=== PATIENT | male | born 1955 | race Caucasian/White ===

== ENCOUNTER 2018-09-06 11:25 | Inpatient (IN) | payer OTHER ==
[~2018-09-06] VITALS: Ht 188 cm; Wt 96.5 kg
[2018-09-06 11:59] LABS: BASOPHILS # (AUTO) 0.06 x10^3/uL (0-0.1); BASOPHILS % (AUTO) 1 % (0-1); EOSINOPHILS # (AUTO) 0.19 x10^3/uL (0-0.4); EOSINOPHILS % (AUTO) 3 % (1-7); LYMPHOCYTES # (AUTO) 1.59 x10^3/uL (1-3.4); LYMPHOCYTES % (AUTO) 21 % (22-44); MD NO; MEAN CORPUSCULAR HEMOGLOBIN 29.7 pg (27.5-34.5); MEAN CORPUSCULAR HGB CONC 33.8 g/dL (33.2-36.2); MEAN CORPUSCULAR VOLUME 87.8 fL (81-97); MEAN PLATELET VOLUME 8.4 fL (7.4-10.4); MONOCYTES # (AUTO) 0.45 x10^3/uL (0.2-0.8); MONOCYTES % (AUTO) 6 % (2-9); NEUTROPHILS # (AUTO) 5.43 x10^3/uL (1.8-6.8); NEUTROPHILS % (AUTO) 70 % (42-75); PLATELET COUNT 262 x10^3/uL (130-400); RED BLOOD COUNT 5.51 x10^6/uL (4.38-5.82); RED CELL DISTRIBUTION WIDTH 12.9 % (9.4-14.8)
[2018-09-06 12:11] LABS: ALBUMIN 4.1 g/dL (3.4-5.0); ANION GAP 0 mmol/L (5-15); CHLORIDE 109 mmol/L (98-107)
[2018-09-06 12:14] LABS: ALANINE AMINOTRANSFERASE 49 U/L (12-78); ALKALINE PHOSPHATASE 94 U/L (45-117); BILIRUBIN,TOTAL 0.7 mg/dL (0.2-1.0); CREATININE 0.94 mg/dL (0.7-1.3); TOTAL PROTEIN 7.5 g/dL (6.4-8.2)
[2018-09-06] MEDS ORDERED: GADOBUTROL 10 MMOL/10 ML PFS ONE (14:06)
[2018-09-06] MEDS ORDERED: SIMV20TA3 PO (14:32)
[2018-09-06] MEDS ORDERED: AMLO10TA6 PO (14:32)
[2018-09-06] MEDS ORDERED: DOXA2TAB9 PO (14:32)
[2018-09-06] MEDS ORDERED: LISI-170 PO (14:32)
[2018-09-06] MEDS ORDERED: HYDR12.53 PO (14:32)
[2018-09-06] MEDS ORDERED: DOCUSATE 100 MG CAPSULE PO PRN (16:00)
[2018-09-06] MEDS ORDERED: ACETAMINOPHEN 325 MG TABLET PO PRN (16:00)
[2018-09-06] MEDS ORDERED: ONDANSETRON 2MG/ML, 2ML IVPush PRN (16:00)
[2018-09-06] MEDS ORDERED: GABAPENTIN 300 MG CAPSULE PO PRN (16:00)
[2018-09-06] MEDS ORDERED: GUAIFENESIN/COD200MG-20MG/10ML LIQUID PO PRN (16:00)
[2018-09-06] MEDS ORDERED: POTASSIUM CHLORIDE 20 MEQ TAB.ER.PRT PO ONE (16:00)
[2018-09-06] MEDS ORDERED: LABETALOL 5MG/ML, 20ML IV PRN (16:00)
[2018-09-06] MEDS: ATORVASTATIN 80 MG TABLET PO SCH (20:19)
[2018-09-06 20:30] VITALS: BP 150/86
[2018-09-07 01:03] VITALS: BP 136/84
[2018-09-07 05:54] LABS: BASOPHILS # (AUTO) 0.06 x10^3/uL (0-0.1); BASOPHILS % (AUTO) 1 % (0-1); EOSINOPHILS # (AUTO) 0.24 x10^3/uL (0-0.4); EOSINOPHILS % (AUTO) 3 % (1-7); LYMPHOCYTES # (AUTO) 1.45 x10^3/uL (1-3.4); LYMPHOCYTES % (AUTO) 20 % (22-44); MD NO; MEAN CORPUSCULAR HEMOGLOBIN 30.3 pg (27.5-34.5); MEAN CORPUSCULAR HGB CONC 34.8 g/dL (33.2-36.2); MEAN CORPUSCULAR VOLUME 87.1 fL (81-97); MEAN PLATELET VOLUME 8.3 fL (7.4-10.4); MONOCYTES # (AUTO) 0.43 x10^3/uL (0.2-0.8); MONOCYTES % (AUTO) 6 % (2-9); NEUTROPHILS # (AUTO) 4.98 x10^3/uL (1.8-6.8); NEUTROPHILS % (AUTO) 70 % (42-75); PLATELET COUNT 248 x10^3/uL (130-400); RED BLOOD COUNT 4.99 x10^6/uL (4.38-5.82); RED CELL DISTRIBUTION WIDTH 13.2 % (9.4-14.8)
[2018-09-07 06:07] LABS: ALBUMIN 3.7 g/dL (3.4-5.0); CHLORIDE 107 mmol/L (98-107)
[2018-09-07 06:08] LABS: HEMOGLOBIN A1C 6.1 % (4.2-6.3)
[2018-09-07 06:18] LABS: ALANINE AMINOTRANSFERASE 42 U/L (12-78); ALKALINE PHOSPHATASE 84 U/L (45-117); ANION GAP 8 mmol/L (5-15); BILIRUBIN,TOTAL 0.9 mg/dL (0.2-1.0); CALCIUM 8.4 mg/dL (8.5-10.1); CHOL/HDL RATIO 3.3; CHOLESTEROL, TOTAL 157 mg/dL (140-239); CREATININE 0.84 mg/dL (0.7-1.3); HDL CHOL % 30 % (26-37); HDL CHOLESTEROL (DIRECT) 47 mg/dL (40-60); LDL CHOLESTEROL,CALCULATED 63 mg/dL (54-169); LDL/HDL RATIO 1.3 (0.5-3.0); TOTAL PROTEIN 6.4 g/dL (6.4-8.2); TRIGLYCERIDES 236 mg/dL (50-200); VLDL CHOLESTEROL 47 mg/dL (0-25)
[2018-09-07] MEDS: POTASSIUM CHLORIDE 20 MEQ TAB.ER.PRT PO SCH ×2 (06:35→10:30)
[2018-09-07 06:42] VITALS: BP 137/83
[2018-09-07] MEDS: ASPIRIN 81 MG TABLET CHEW PO/NG SCH (08:48)
[2018-09-07 14:58] VITALS: BP 144/84
[2018-09-07 20:00] VITALS: BP 162/88
[2018-09-07] MEDS: ATORVASTATIN 80 MG TABLET PO SCH (20:45)
[2018-09-08 02:00] VITALS: BP 142/79
[2018-09-08 06:16] LABS: ANION GAP 10 mmol/L (5-15); CALCIUM 8.5 mg/dL (8.5-10.1); CHLORIDE 109 mmol/L (98-107); CREATININE 0.78 mg/dL (0.7-1.3)
[2018-09-08 06:43] VITALS: BP 148/88
[2018-09-08 06:54] LABS: BASOPHILS # (AUTO) 0.02 x10^3/uL (0-0.1); BASOPHILS % (AUTO) 0 % (0-1); EOSINOPHILS # (AUTO) 0.19 x10^3/uL (0-0.4); EOSINOPHILS % (AUTO) 2 % (1-7); LYMPHOCYTES # (AUTO) 1.51 x10^3/uL (1-3.4); LYMPHOCYTES % (AUTO) 19 % (22-44); MD NO; MEAN CORPUSCULAR VOLUME 88.4 fL (81-97); MEAN PLATELET VOLUME 9.2 fL (7.4-10.4); MONOCYTES # (AUTO) 0.42 x10^3/uL (0.2-0.8); MONOCYTES % (AUTO) 5 % (2-9); NEUTROPHILS % (AUTO) 73 % (42-75); PLATELET COUNT 243 x10^3/uL (130-400); RED BLOOD COUNT 5.08 x10^6/uL (4.38-5.82); RED CELL DISTRIBUTION WIDTH 12.7 % (9.4-14.8)
[2018-09-08] MEDS: ASPIRIN 81 MG TABLET CHEW PO/NG SCH (08:39)
[2018-09-08] MEDS: POTASSIUM CHLORIDE 20 MEQ TAB.ER.PRT PO SCH ×2 (10:37→15:06)
[2018-09-08 12:08] VITALS: BP 157/89
[2018-09-08] MEDS: LISINOPRIL 20 MG TABLET PO SCH (15:06)
[2018-09-08] MEDS ORDERED: POTASSIUM CHLORIDE 20 MEQ TAB.ER.PRT PO ONE (16:30)
[2018-09-08 19:55] VITALS: BP 153/83
[2018-09-08] MEDS: ATORVASTATIN 80 MG TABLET PO SCH (20:19)
[2018-09-08] MEDS ORDERED: OMNIPAQUE 350 MG/ML, 100ML BOTTLE ONE (23:59)
[2018-09-09 02:00] VITALS: BP 157/85
[2018-09-09 05:47] LABS: ANION GAP 11 mmol/L (5-15); CALCIUM 8.5 mg/dL (8.5-10.1); CHLORIDE 114 mmol/L (98-107); CREATININE 0.85 mg/dL (0.7-1.3)
[2018-09-09 07:57] VITALS: BP 150/87
[2018-09-09] MEDS: AMLODIPINE 10 MG TAB PO SCH (08:54)
[2018-09-09] MEDS: LISINOPRIL 20 MG TABLET PO SCH (08:54)
[2018-09-09] MEDS: ASPIRIN 81 MG TABLET CHEW PO/NG SCH (08:54)
[2018-09-09] MEDS: HYDROCHLOROTHIAZIDE 12.5 MG CAPSULE PO SCH (12:19)
[2018-09-09] MEDS: POTASSIUM CHLORIDE 20 MEQ TAB.ER.PRT PO SCH (12:19)
[2018-09-09] MEDS: DOXAZOSIN 2MG TABLET PO SCH (12:19)
[2018-09-09 12:43] VITALS: BP 168/94
[2018-09-09 18:58] VITALS: BP 137/79
[2018-09-09] MEDS: ATORVASTATIN 80 MG TABLET PO SCH (20:59)
[2018-09-10 01:27] VITALS: BP 152/91
[2018-09-10 07:42] VITALS: BP 136/77
[2018-09-10] MEDS ORDERED: ATOR-2 PO (08:40)
[2018-09-10] MEDS ORDERED: ASPI-515 PO/NG (08:40)
[2018-09-10] MEDS ORDERED: POTA20TA6 PO (08:40)
[2018-09-10] MEDS ORDERED: ENOX40SY4 SQ (08:56)
[2018-09-10] MEDS: LISINOPRIL 20 MG TABLET PO SCH (09:05)
[2018-09-10] MEDS: AMLODIPINE 10 MG TAB PO SCH (09:06)
[2018-09-10] MEDS: DOXAZOSIN 2MG TABLET PO SCH (09:06)
[2018-09-10] MEDS: HYDROCHLOROTHIAZIDE 12.5 MG CAPSULE PO SCH (09:06)
[2018-09-10] MEDS: POTASSIUM CHLORIDE 20 MEQ TAB.ER.PRT PO SCH (09:06)
[2018-09-10] MEDS: ASPIRIN 81 MG TABLET CHEW PO/NG SCH (09:06)
== END 2018-09-10 13:19 | DRG 65 ==
LOC: ED 14:49 → EDIP 15:13 → 4WST 16:09
PROVIDERS: ADMIT Hospitalist; ATTEND Hospitalist
DX: I63.9 Cerebral infarction, unspecified (principal); G81.94 Hemiplegia, unspecified affecting left nondominant side; E78.5 Hyperlipidemia, unspecified; E87.6 Hypokalemia; I10 Essential (primary) hypertension; R13.12 Dysphagia, oropharyngeal phase; R27.0 Ataxia, unspecified; R29.709 NIHSS score 9; R47.81 Slurred speech; R29.810 Facial weakness; Z80.3 Family history of malignant neoplasm of breast; Z82.49 Family history of ischemic heart disease and other diseases of the circulatory system; Z90.49 Acquired absence of other specified parts of digestive tract; Z82.3 Family history of stroke; Z90.79 Acquired absence of other genital organ(s)
CPT/HCPCS: 36415; 70450; 70496; 70553; 80048; 80053; 80061; 83036; 83735; 84132; 84443; 85025; 93005; 93306; 93880; 99291; A9585; G0378; Q9967; 92523-GN

== ENCOUNTER → 2018-12-18 | Outpatient (CLI) | payer OTHER ==
[~2018-12-18] MED LIST: AMLO10TA8 PO; ASPI-515 PO/NG; ATOR-2 PO; DOXA2TAB9 PO; ENOX40SY4 SQ; HYDR12.517 PO; LISI-170 PO; OMNIPAQUE 350 MG/ML, 100ML BOTTLE ONE; POTA20TA6 PO; SIMV20TA3 PO
== END | disposition home or self-care (01) ==
LOC: CFH 13:58
PROVIDERS: ATTEND Nurse Practitioner Family
DX: N28.1 Cyst of kidney, acquired (principal); D35.02 Benign neoplasm of left adrenal gland; E26.01 Conn's syndrome
CPT/HCPCS: 74177; Q9967